=== PATIENT | female | born 1950 | race Caucasian/White ===

== ENCOUNTER 2020-12-28 09:11 | Emergency (ER) | payer MEDICARE, OTHER, SELFPAY ==
--- NOTE | ~2020-12-28 | XR_ITS ---
EXAMINATION: XR ANKLE, LEFT XR FOOT, LEFT CLINICAL INFORMATION: Pain and swelling. Prior history medial malleoli fracture. COMPARISON: None TECHNIQUE: 2 views left ankle and 2 views of the left foot are obtained. A lateral view of the combined ankle and foot is also included for a total of 5 views FINDINGS: Symptom marker is directed towards the lateral malleolus. The malleoli appear intact and the ankle mortise is symmetric. The talar dome shows no osteochondral lesion or joint narrowing or erosive change. The subtalar joint is unremarkable. There is some benign mineralization medial ankle soft tissues just distal to the medial malleolus which may be related to old injury. The retrocalcaneal recess is preserved. Note is unremarkable. The midfoot and forefoot show no fracture or dislocation or arthropathy. XR/XR ankle LT min 3V IMPRESSION: No fracture or dislocation.
--- NOTE | ~2020-12-28 | XR_ITS ---
EXAMINATION: XR ANKLE, LEFT XR FOOT, LEFT CLINICAL INFORMATION: Pain and swelling. Prior history medial malleoli fracture. COMPARISON: None TECHNIQUE: 2 views left ankle and 2 views of the left foot are obtained. A lateral view of the combined ankle and foot is also included for a total of 5 views FINDINGS: Symptom marker is directed towards the lateral malleolus. The malleoli appear intact and the ankle mortise is symmetric. The talar dome shows no osteochondral lesion or joint narrowing or erosive change. The subtalar joint is unremarkable. There is some benign mineralization medial ankle soft tissues just distal to the medial malleolus which may be related to old injury. The retrocalcaneal recess is preserved. Note is unremarkable. The midfoot and forefoot show no fracture or dislocation or arthropathy. XR/XR foot LT min 3V IMPRESSION: No fracture or dislocation.
[2020-12-28 09:21] VITALS: BP 123/69; PULSE 118; RESP 19; TEMP 37; O2SAT 96; BMI 22.8
--- NOTE | 2020-12-28 09:52 | ED.LOWEXIN ---
HPI - Extremity Injury (Lower) General Chief Complaint: Extremity Injury, Lower Stated Complaint: L ANKLE INJ Time Seen by Provider: 12/28/20 09:38 Source: patient Mode of arrival: ambulatory Limitations: no limitations History of Present Illness HPI Narrative: 70-year-old female presenting to the ED with complaints of worsening left ankle pain/swelling over the past few days worse today. She reports that she was seen approximately 2 weeks ago at another hospital and diagnosed with a left medial malleolus fracture ?shattered in pieces? per the patient she reports that she was placed in an ortho boot and given a walker and has been trouble using the ortho boot with a walker therefore she believes she re-injured her left ankle although she does not remember any specific injury. She reports she seen orthopedic after that although she started having worsening symptoms within the last few days. She denies any new falls or injuries that she can recall. She denies any dizziness, headaches, chest pain or shortness of breath, dyspnea on exertion, orthopnea, palpitations, calf tenderness, recent travel or sick contacts or any other symptoms complaints or concerns at this time. Reports that she has taken aspirin for her pain and is not providing any symptomatic relief. complaint: ankle injury Onset (ago): week(s) (2) Injury: Left: ankle (lateral aspect ) and foot Place: home Severity: moderate Relieving factors: nothing Exacerbating factors: weight bearing, movement and palpation Context: other (pt unsure ) Associated symptoms: swelling and able to partially bear weight Other symptoms: none Treatments prior to arrival: splint and other (aspirin ) Related Data Previous Rx's Medication Instructions Recorded cephalexin 500 mg capsule 500 mg PO Q6H 10 Days #40 cap 12/28/20 doxycycline monohydrate 100 mg 100 mg PO BID 10 Days #20 cap 12/28/20 capsule indomethacin 50 mg capsule 50 mg PO Q8H 5 Days #15 cap 12/28/20 tramadol 50 mg tablet 50 mg PO Q8H PRN #14 tab 12/28/20 Allergies Allergy/AdvReac Type Severity Reaction Status Date / Time latex Allergy Itching Verified 12/28/20 09:26 Review of Systems Review of Systems: Constitutional : No Weight loss, No Fever, No Chills, No Night Sweats, No Fatigue, No Malaise ENT/Mouth : No Hearing loss, No Ear Pain, No Nasal Congestion, No Sinus Pain, No Hoarseness, No sore throat, No Rhinorrhea, No Swallowing Difficulty Eyes: No Eye Pain, No Swelling, No Redness, No Foreign Body, No Discharge, No Vision Changes Cardiovascular : No Chest Pain, No SOB, No Dyspnea on Exertion, No Orthopnea, No Edema, No Palpitations Respiratory : No Cough, No Sputum, No Wheezing, No Smoke Exposure, No Dyspnea Gastrointestinal : No Nausea, No Vomiting, No Diarrhea, No Constipation, No abdominal Pain, No Hematochezia, No Melena Genitourinary : no irregular bleeding, No Dysuria, No Urinary Frequency, No Hematuria, No Urinary Incontinence, No Urgency, No Flank Pain, No Urinary Flow Changes, No Hesitancy Musculoskeletal : + joint pain/swelling, No Myalgias Skin : No Skin Lesions, No rash Neuro : No Weakness, No Numbness, No Paresthesias, No Loss of Consciousness, No Dizziness, No Headache Psych : No Anxiety/Panic, No Depression, No SI/HI/AH/VH, No Social Issues, Heme/Lymph: No Bruising, No Bleeding,No Lymphadenopathy Endocrine : No Polyuria, No Polydipsia, No Temperature Intolerance Yes all other systems are reviewed and are negative [facility] Past Medical History Attestation statement: The following information was validated with the patient. Social History Social History Advance Directives: Yes Advance Directives Information Provided: No Advance Directives on File: No Physical Exam Vital Signs: Vital Signs: Last Vital Signs Temp 98.6 F 12/28/20 09:21 Pulse 118 H 12/28/20 09:21 Resp 19 12/28/20 09:21 BP 123/69 12/28/20 09:21 Pulse Ox 96 12/28/20 09:21 Body Mass Index 22.8 vital signs have been reviewed as normal and appeared to be correct. Blood pressure normal Heart rate normal. Respiration rate normal. Temperature normal. Oxygen saturation normal. Appearance: Alert. Oriented X3. No acute distress. Head: Normal external exam. Normocephalic. Atraumatic. Eyes: PERRLA. EOMI. Conjunctiva and sclera normal. Eyelids normal. ENT: Pharynx normal. Uvula midline. Moist mucous membranes. Neck: Normal inspection. Neck supple. FROM. CVS: Normal heart rate and rhythm. Respiratory: No respiratory distress. Painless inspiration. Skin: Skin warm and dry. Normal skin color. Normal skin turgor. No rashes/lesions/lacerations noted. Extremities: Patient moderate tenderness palpation to the left ankle at the lateral malleolus with soft tissue swelling and erythema noted.. Patient also has tenderness palpation to the medial aspect of the left ankle. No obvious ligamentous or tendon injury. No calf tenderness is noted. No lower extremity edema or pitting edema is noted. No fluctuance/streaking/induration/drainage/abrasion/foreign body/lacerations noted. Achilles tendon is intact. Patient with tenderness up patient to the left foot at the 5th metatarsal as well. Otherwise no other tenderness to palpation noted on my exam. Otherwise all other Extremities exhibit normal range of motion and nontender. Neuro: Oriented X 3. No motor deficit. No sensory deficit. Reflexes normal. Normal steady gait. No focal neuro deficits noted. Vascular: + radial pulses/+ 2 distal pedal pulses/+2 dorsalis pedis b/l. Normal cap refill. No cyanosis noted to upper extremity nails and lower extremity toes nails. Course Course Course Narrative: 9:45am - 70-year-old female presenting to the ED with complaints of worsening left ankle pain/swelling over the past few days worse today. She reports that she was seen approximately 2 weeks ago at another hospital and diagnosed with a left medial malleolus fracture ?shattered in pieces? per the patient she reports that she was placed in an ortho boot and given a walker and has been trouble using the ortho boot with a walker therefore she believes she re-injured her left ankle although she does not remember any specific injury. She reports she seen orthopedic after that although she started having worsening symptoms within the last few days. Plan: Xray of left foot/ankle Reevaluation(s) Reevaluation #1: - x-ray negative for fractures or dislocations. I explained to the patient that I am unsure who told her she had her ankle bone shattered although on our x-rays it does not reveal that and I explained to her that due to her soft tissue swelling and erythema she might have a cellulitic infection versus gout therefore will treat with antibiotics and symptomatic treatment for gout and instructions to follow-up with primary care provider and to return if any new or worsening symptoms. Patient understands agrees with this plan. Time: 10:50 MDM - Extremity Injury (Lower) Medical Records Attestation: I reviewed the patient's medical records. Imaging Data Left ankle/foot x-rays: Attestation: I personally reviewed and interpreted this imaging study as follows: Radiologist's impression: FINDINGS: Symptom marker is directed towards the lateral malleolus. The malleoli appear intact and the ankle mortise is symmetric. The talar dome shows no osteochondral lesion or joint narrowing or erosive change. The subtalar joint is unremarkable. There is some benign mineralization medial ankle soft tissues just distal to the medial malleolus which may be related to old injury. The retrocalcaneal recess is preserved. Note is unremarkable. The midfoot and forefoot show no fracture or dislocation or arthropathy.? XR/XR ankle LT min 3V IMPRESSION: No fracture or dislocation.? Discharge Plan Discharge Clinical Impression: Gout, Cellulitis Patient Disposition: Home, Self-Care Instructions: Cellulitis (ED), Low Purine Diet (ED), Gout (ED) Prescriptions: New indomethacin 50 mg capsule 50 mg PO Q8H 5 Days Qty: 15 RF: 0 cephalexin 500 mg capsule 500 mg PO Q6H 10 Days Qty: 40 RF: 0 doxycycline monohydrate 100 mg capsule 100 mg PO BID 10 Days Qty: 20 RF: 0 tramadol 50 mg tablet 50 mg PO Q8H PRN (Reason: pain) Qty: 14 RF: 0 Referrals: Christine Verde MD [Primary Care Provider] - 2 days Print Language: Serbian
[2020-12-28] MEDS: traMADoL HCL 50 MG TABLET PO (10:03)
[2020-12-28 10:52] VITALS: RESP 18
== END 2020-12-28 11:04 | disposition home or self-care (01) ==
PROVIDERS: Emergency Provider Emergency Medicine Emergency Medical Services; PCP Internal Medicine
DX: M10.9 Gout, unspecified (principal); L03.116 Cellulitis of left lower limb; M25.572 Pain in left ankle and joints of left foot
CPT/HCPCS: 73610; 73630; 99283

== ENCOUNTER 2021-01-08 16:10 | Emergency (ER) | payer MEDICARE, OTHER, SELFPAY ==
--- NOTE | ~2021-01-08 | US_ITS ---
EXAMINATION: LEFT LOWER EXTREMITY DEEP VENOUS ULTRASOUND CLINICAL INFORMATION: Swelling of the left foot. COMPARISON: None. TECHNIQUE: Duplex Doppler imaging with compression maneuvers were performed of the left lower extremity deep venous system. FINDINGS: The visualized common femoral, femoral and popliteal veins demonstrate normal compressibility and color flow without evidence of venous thrombosis. Visualized portions of the calf veins demonstrate normal color fill-in suggesting patency. There is no evidence of a Munroe's cyst. US/US venous duplex LE LT IMPRESSION: No evidence of deep venous thrombosis involving the left lower extremity.
[2021-01-08 16:57] VITALS: BP 118/88; PULSE 85; RESP 18; TEMP 36.9; O2SAT 99; BMI 22.4
--- NOTE | 2021-01-08 18:58 | ED_ITS ---
HPI - General Adult General Chief complaint: Extremity Injury, Lower Stated complaint: Foot swelling Time Seen by Provider: 01/08/21 18:15 Source: patient Mode of arrival: ambulatory Limitations: no limitations History of Present Illness HPI narrative: 71-year-old female presents to [facility] left foot swelling abse nt present for the past 10 days to rule DVT. Patient denies any leg swelling, calf pain, chest pain, shortness of breath. Patient states she was given gout medication and antibiotics she states redness and warmth resolved. Patient states swelling also improved. Because the Orthopedic who saw her stated maybe she might have blood clot in her leg she came to the ED to get ultrasound to make sure there is no DVT. Patient states foot is swollen, but not as before and has definitely improved. Related Data Previous Rx's Medication Instructions Recorded cephalexin 500 mg capsule 500 mg PO Q6H 10 Days #40 cap 12/28/20 doxycycline monohydrate 100 mg 100 mg PO BID 10 Days #20 cap 12/28/20 capsule indomethacin 50 mg capsule 50 mg PO Q8H 5 Days #15 cap 12/28/20 tramadol 50 mg tablet 50 mg PO Q8H PRN #14 tab 12/28/20 naproxen 500 mg tablet 500 mg PO BID PRN 10 Days #20 tab 01/08/21 Allergies Allergy/AdvReac Type Severity Reaction Status Date / Time latex Allergy Mild Itching Verified 01/08/21 16:57 Review of Systems Review of Systems: Yes all other systems are reviewed and are negative Constitutional: Constitutional: Reports as per HPI and Reports no additional constitutional complaints Eyes: Eyes: Reports as per HPI and Reports no additional eye complaints ENT: Reports system reviewed and no additional complaints, except as documented and Reports as per HPI Cardiovascular: Cardiovascular: Reports as per HPI and Reports no additional cardiovascular complaints Respiratory: Respiratory: Reports as per HPI and Reports no additional respiratory complaints Gastrointestinal: Gastrointestinal: Reports as per HPI and Reports no additional gastrointestinal complaints Genitourinary: Genitourinary: Reports no additional female genitourinary complaints and Reports as per HPI Musculoskeletal: Musculoskeletal: Reports no additional musculoskeletal complaints and Reports as per HPI Comments: Left foot swelling only Neurologic: Reports system reviewed and no additional complaints, except as documented and Reports as per HPI Psychiatric: Psychiatric: Reports no additional psychiatric complaints and Reports as per HPI [facility] Past Medical History Medical History (Updated 01/09/21 @ 00:02 by Background Daemon) Asthma Breast CA Gout UTI (urinary tract infection) Social History Social History Advance Directives: No Advance Directives Information Provided: No Physical Exam Vital Signs: Vital Signs: Last Vital Signs Temp 98.4 F 01/08/21 16:57 Pulse 85 01/08/21 16:57 Resp 18 01/08/21 16:57 BP 118/88 01/08/21 16:57 Pulse Ox 99 01/08/21 16:57 Body Mass Index 22.4 Const: General: cooperative, healthy appearing, comfortable, no acute distress, well developed, alert, awake and Physically active Orientation/consciousness: patient oriented x3 HENMT: Head: Yes normal to inspection, Yes No palpable skull fracture present, Yes normocephalic, Yes atraumatic and No abrasion Eyes: General: appearance normal, both eyes and all related structures Neck: Neck: Yes normal visual inspection, Yes full ROM, Yes no lymphadenopathy, Yes no meningeal signs, Yes trachea midline, Yes supple, No anterior neck swelling and No tender Chest: Chest palpation & inspection: normal inspection of the chest and normal palpation of entire chest wall Resp: Effort & Inspection: normal respiratory effort and able to speak in complete sentences Auscultation: clear to auscultation bilaterally Cardio: Jugular venous distension: no JVD Heart sounds: S1 normal heart sound present and S2 normal heart sound present GI: Inspection: Yes normal to inspection and No abdominal wall ecchymosis Palpation (GI): Soft to palpation, not firm, nontender, no guarding and not rigid : General: No CVA tenderness and Yes no CVA tenderness Back/Spine/Pelvis: Back: no CVA tenderness, No CVA tenderness and No back tenderness Skin: General skin exam: no rashes or lesions noted and elasticity normal Neuro: General: patient oriented x3, no meningeal signs and CN's II-XI intact bilaterally Cranial nerves: Yes CN's II-XII intact bilaterally Extrem: General: Yes normal to inspection and Yes full ROM Ankle/foot/toe images: 1. Positive for foot swelling, but negative for any warmth, coolness, or ecchymosis. Swelling also on bilateral malleus. Negative for erythema to indicate cellulitis. Pedal pulses intact. Neuro exam intact. Vascular exam intact. Negative for open wounds/ulcers Psych: Appearance: grossly normal, well kempt and not disheveled Course Course Course Narrative: Presently history physical exam does not indicate cellulitis, arterial occlusion, fracture. Patient had normal x-ray here on the . Patient states swelling has significantly improved. Will send for ultrasound to rule out DVT. Reevaluation(s) Reevaluation #1: Lower extremity ultrasound negative for DVT. History physical exam does not indicate cellulitis, arterial occlusion, fracture, compartment syndrome, gout, septic joint or DVT. Diagnosis pedal edema. Patient educated on elevation, and compression stockings. Patient informed to follow-up with primary care provider. Time: 19:48 Medical Decision Making MDM Narrative Medical decision making narrative: Pedal edema Discharge Plan Discharge Clinical Impression: Pedal edema Patient Disposition: Home, Self-Care Instructions: Edema (ED) Additional Instructions: Lower extremity ultrasound came back negative for DVT. Presently history physical exam does not indicate cellulitis, DVT, arterial occlusion, compartment syndrome, gout, CHF or fracture. Return to the ED for increased swelling of foot, leg swelling/calf pain, redness, red streaks, fever, chills, bluish black discoloration of toes, coldness of extremity, warmness of upper extremity, chest pain, shortness of breath, or any other concerning symptoms. Please follow-up with primary care provider Prescriptions: New naproxen 500 mg tablet 500 mg PO BID PRN (Reason: pain) 10 Days Qty: 20 RF: 0 No Action indomethacin 50 mg capsule 50 mg PO Q8H 5 Days Qty: 15 RF: 0 cephalexin 500 mg capsule 500 mg PO Q6H 10 Days Qty: 40 RF: 0 doxycycline monohydrate 100 mg capsule 100 mg PO BID 10 Days Qty: 20 RF: 0 tramadol 50 mg tablet 50 mg PO Q8H PRN (Reason: pain) Qty: 14 RF: 0 Interventions: ED Discharge Assessment Last Done: 01/08/21 20:35 Discharge Date/Time: 01/08/21 20:35 Print Language: Maltese
== END 2021-01-08 20:35 | disposition home or self-care (01) ==
PROVIDERS: Emergency Provider Emergency Medicine; PCP Internal Medicine
DX: R60.0 Localized edema (principal); Z79.899 Other long term (current) drug therapy
CPT/HCPCS: 93971; 99283; 99284

== ENCOUNTER 2021-11-13 11:00 | Outpatient (REF) | payer MEDICARE, OTHER, SELFPAY ==
--- NOTE | ~2021-11-13 | MM_ITS ---
EXAMINATION: BONE DENSITOMETRY CLINICAL INDICATION: Bone disorder. COMPARISON: Baseline BD dated 10/16/2017. TECHNIQUE: Using a [employer] DXA System (software version: 13.1) manufactured by [employer], dual-energy x-ray absorptiometry was performed of the lumbar spine and left hip. The images are of good technical quality. Summary results are attached. FINDINGS: AP SPINE L1-L4: Current: BMD 0.972 g/cm2, Z-score 0.3, T-score -1.7, osteopenia, 3.8% decrease from baseline (<5% change is not significant). Baseline: BMD 1.010 g/cm2. LEFT FEMUR, NECK: Current: BMD 0.700 g/cm2, Z-score -0.4, T-score -2.4, osteopenia. Baseline: BMD 0.788 g/cm2. LEFT FEMUR, TOTAL: Current: BMD 0.711 g/cm2, Z-score -0.5, T-score -2.4, osteopenia, 12.5% decrease from baseline (<5% change is not significant). Baseline: BMD 0.813 g/cm2. IDENTIFIED RISK FACTORS: History of adult fracture. Height loss. Menopause. HISTORY OF FRACTURE: Ankle, Foot. MEDICATIONS: Calcium supplement and/or multivitamin. Vitamin D. MM/XR DEXA axial skeleton IMPRESSION: 1. DIAGNOSIS: Osteopenia based on the lowest T-score value of -2.4 in the femoral neck and total femur applying World Health Organization criteria. 2. 10-YEAR FRACTURE RISK PREDICTION, FRAX: Major osteoporotic fracture (clinical spine, forearm, hip or shoulder) 21.7%. Hip fracture 6.4%. 3. Treatment Recommendations: NOF guidelines recommend consideration for treatment in postmenopausal women and men age 50 and older presenting with the following: -A hip or vertebral (clinical or morphometric) fracture. -T-score less than or equal to -2.5 at the femoral neck or spine after appropriate evaluation to exclude secondary causes. -Low bone mass at the hip or spine and a 10-year fracture probability by FRAX of greater than or equal to 3% for hip fracture or greater than or equal to 20% for major osteoporotic fracture based on the [place] adapted WHO algorithm. 4. Other Recommendations: All treatment decisions require clinical judgment and consideration of individual patient factors, including patient preferences, comorbidities, previous drug use, risk factors not captured in the FRAX model (e.g. frailty, falls, vitamin D deficiency, increased bone turnover, interval significant decline in bone density) and possible under or overestimation of fracture risk by FRAX. Additional medical evaluation for secondary cause of low bone mineral density may be appropriate. FUTURE SCAN RECOMMENDATION: People with diagnosed cases of osteoporosis or at high risk for fracture should have regular bone mineral density tests. For patients eligible for Medicare, routine testing is allowed once every 2 years. The testing frequency can be increased to one year for patients who have rapidly progressing disease, those who are receiving or discontinuing medical therapy to restore bone mass, or have additional risk factors.
== END 2021-11-13 11:01 | disposition home or self-care (01) ==
LOC: HO.MAMMO 11:00
PROVIDERS: PCP Internal Medicine; Visit Provider Internal Medicine
DX: Z13.820 Encounter for screening for osteoporosis (principal); M85.80 Other specified disorders of bone density and structure, unspecified site; Z78.0 Asymptomatic menopausal state
CPT/HCPCS: 77080